=== PATIENT | male | born 1955 | race Caucasian/White ===

== ENCOUNTER 2016-10-17 16:10 | Inpatient (IN) | payer MEDICARE ==
[~2016-10-17] VITALS: Ht 180.3 cm; Wt 79.2 kg
[2016-10-17 17:43] LABS: HEMOGLOBIN 13.1 gm/dl (14.0-17.5); RED BLOOD COUNT 4.06 M/UL (4.20-5.50); WHITE BLOOD COUNT 6.1 K/UL (4.5-11.0)
[2016-10-17] MEDS ORDERED: DILANTIN100 MG PO (23:56)
[2016-10-17] MEDS ORDERED: SODIUM BICARBO325 MG PO (23:57)
[2016-10-17] MEDS ORDERED: DIVALPROEX SOD500 M1 PO (23:57)
[2016-10-17] MEDS ORDERED: TYLENOL W/CODEIN1 E1 PO (23:58)
[2016-10-17] MEDS ORDERED: AMITRIPTYLINE100 MG PO (23:58)
[2016-10-17] MEDS ORDERED: FOLIC ACID 1 MG1 MG PO (23:59)
[2016-10-17] MEDS ORDERED: LOPRESSOR 25 MG25 MG PO (23:59)
[2016-10-18] MEDS ORDERED: TOPAMAX 100 MG100 MG PO
[2016-10-18 05:27] LABS: HEMOGLOBIN 13.4 gm/dl (14.0-17.5); RED BLOOD COUNT 4.23 M/UL (4.20-5.50)
[2016-10-19] MEDS ORDERED: LEVAQUIN500 MG PO (16:27)
== END 2016-10-21 14:30 | disposition home or self-care (01) | DRG 682 ==
LOC: ER1 16:10 → ZEROF 20:24 → MED SURG 4 20:24
PROVIDERS: Emergency Medicine; Family Medicine; ADMIT Internal Medicine
DX: N17.9 Acute kidney failure, unspecified (principal); G93.49 Other encephalopathy; Q04.3 Other reduction deformities of brain; N30.90 Cystitis, unspecified without hematuria; B96.20 Unspecified Escherichia coli [E. coli] as the cause of diseases classified elsewhere; E87.5 Hyperkalemia; R26.81 Unsteadiness on feet; I12.9 Hypertensive chronic kidney disease with stage 1 through stage 4 chronic kidney disease, or unspecified chronic kidney disease; N18.3 Chronic kidney disease, stage 3 (moderate); R51 Headache; G40.909 Epilepsy, unspecified, not intractable, without status epilepticus; G89.29 Other chronic pain; M54.5 Low back pain; Z87.820 Personal history of traumatic brain injury; H54.8 Legal blindness, as defined in USA; Z90.2 Acquired absence of lung [part of]; B19.20 Unspecified viral hepatitis C without hepatic coma; F17.210 Nicotine dependence, cigarettes, uncomplicated; Z28.21 Immunization not carried out because of patient refusal; Z85.118 Personal history of other malignant neoplasm of bronchus and lung; Z88.0 Allergy status to penicillin; Z88.6 Allergy status to analgesic agent; Z88.8 Allergy status to other drugs, medicaments and biological substances; Z79.891 Long term (current) use of opiate analgesic; Z79.899 Other long term (current) drug therapy
CPT/HCPCS: 36415; 70450; 71010; 72131; 80048; 80053; 80185; 80307; 81001; 83690; 83880; 84484; 85025; 85027; 85610; 85730; 87040; 87077; 87086; 87186; 93005; 96365; 97116; 99285; G0480; J0692; J1630; J1956; J7030; J7050